=== PATIENT | female | born 1960 | race Caucasian/White ===

== ENCOUNTER → 2018-02-11 | Outpatient (CLI) | payer OTHER ==
--- NOTE | 2018-02-11 17:10 | Diagnostic Imaging Report ---
PROCEDURE:HIPS BILAT 3-4VWS (+/- PELVIS) INDICATION:Bilateral hip pain, popping COMPARISON:None. FINDINGS: Normal mineralization. No acute displaced fracture or dislocation. Joint spaces are relatively well-preserved. No lytic or blastic lesion. Soft tissues are unremarkable. CONCLUSION: Essentially unremarkable hip films. Gunner Belcher M.D. Dictated by: Gunner Belcher M.D. on 02/11/2018 at 17:13 Electronically approved by: Gunner Belcher M.D. on 02/11/2018 at 17:13
== END ==
LOC: RAD 09:46
PROVIDERS: ATTEND Internal Medicine
DX: M16.11 Unilateral primary osteoarthritis, right hip (principal)
CPT/HCPCS: 73522

== ENCOUNTER → 2019-02-24 | Outpatient (CLI) | payer OTHER | LOC: RAD 08:01 | PROVIDERS: ATTEND Family Medicine | DX: R22.41 Localized swelling, mass and lump, right lower limb (principal) | CPT/HCPCS: 93971 ==

== ENCOUNTER → 2022-01-04 | Outpatient (CLI) | payer OTHER | LOC: MAMMO 12:49 | PROVIDERS: ATTEND Internal Medicine | DX: R10.2 Pelvic and perineal pain (principal); N94.10 Unspecified dyspareunia | CPT/HCPCS: 76830; 76856; 77067 ==

== ENCOUNTER 2022-02-01 17:40 | Emergency (ER) | payer OTHER ==
[~2022-02-01] VITALS: Ht 162.6 cm; Wt 100.7 kg
[2022-02-01] MEDS ORDERED: SODIUM CHLORIDE 0.9% 1000ML 1,000 ML IV ONE ×2 (18:00→18:30)
[2022-02-01 18:01] LABS: BASOPHILS # (AUTO) 0.1 (0.0-0.1); BASOPHILS % 0.3 % (0.0-1.0); EOSINOPHILS # (AUTO) 0.1 (0.0-0.4); EOSINOPHILS % 0.7 % (0.0-6.0); HEMATOCRIT 51.5 % (34.2-44.1); HEMOGLOBIN 16.7 g/dL (12.0-16.0); LYMPHOCYTES # (AUTO) 2.8 (1.0-3.2); LYMPHOCYTES % 15.5 % (18.0-39.1); MEAN CORPUSCULAR HEMOGLOBIN 27.5 pg (28-32); MEAN CORPUSCULAR HGB CONC 32.4 g/dL (31-35); MEAN CORPUSCULAR VOLUME 84.8 fL (81-99); MONOCYTES # (AUTO) 1.2 (0.2-0.8); MONOCYTES % 6.5 % (4.4-11.3); NEUTROPHILS # (AUTO) 13.7 (2.1-6.9); NEUTROPHILS % 76.2 % (38.7-80.0); PLATELET COUNT 350 x10e3/uL (140-360); RED BLOOD COUNT 6.07 x10e6/uL (3.6-5.1); RED CELL DISTRIBUTION WIDTH 14.6 % (11.7-14.4)
[2022-02-01 18:16] LABS: ALBUMIN 3.8 g/dL (3.5-5.0); ANION GAP 15.7 mmol/L (8-16); CALCIUM 9.4 mg/dL (8.4-10.2); CREATININE, SERUM 1.54 mg/dL (0.57-1.11); POTASSIUM 4.7 mmol/L (3.5-5.1)
[2022-02-01] MEDS ORDERED: ONDANSETRON ODT4 MG PO (19:25)
[2022-02-01 20:10] VITALS: BP 100/87
== END 2022-02-01 20:11 | disposition home or self-care (01) ==
LOC: ER 17:49
DX: E86.0 Dehydration (principal); N17.9 Acute kidney failure, unspecified; R42 Dizziness and giddiness; I10 Essential (primary) hypertension
CPT/HCPCS: 36415; 70450; 71045; 80053; 85025; 93005; 99284; J7030

== ENCOUNTER 2022-02-10 11:59 | Emergency (ER) | payer OTHER ==
[~2022-02-10] VITALS: Ht 162.6 cm; Wt 100.7 kg
[~2022-02-10 11:59] MED LIST: ONDANSETRON ODT4 MG PO
[2022-02-10] MEDS ORDERED: SODIUM CHLORIDE 0.9% 1000ML 1,000 ML IV STA (12:09)
[2022-02-10] MEDS ORDERED: ONDANSETRON HCL INJ 2MG/ML 2ML 2 MG/ML VIAL IV STA (12:09)
[2022-02-10 13:07] LABS: COLOR,URINE YELLOW (YELLOW)
[2022-02-10 13:08] LABS: BACTERIA,URINE FEW /HPF; CLARITY,URINE SL CLOUDY (CLEAR); EPITHELIAL CELLS,URINE FEW /LPF; KETONES,URINE TRACE (NEGATIVE); LEUKOCYTE ESTERASE ,URINE NEGATIVE (NEGATIVE); NITRITE,URINE NEGATIVE (NEGATIVE); PROTEIN,URINE DIPSTICK 1+ (NEGATIVE); RBC,URINE 0-5 /HPF (0-5); URINE UROBILINOGEN 0.2 mg/dL (0.2 - 1); WBC,URINE (MAN) 0-5 /HPF (0-5)
[2022-02-10 13:18] LABS: BASOPHILS # (AUTO) 0.1 (0.0-0.1); BASOPHILS % 0.4 % (0.0-1.0); EOSINOPHILS # (AUTO) 0.1 (0.0-0.4); HEMATOCRIT 45.9 % (34.2-44.1); HEMOGLOBIN 14.6 g/dL (12.0-16.0); LYMPHOCYTES # (AUTO) 1.8 (1.0-3.2); LYMPHOCYTES % 14.6 % (18.0-39.1); MEAN CORPUSCULAR HEMOGLOBIN 27.4 pg (28-32); MEAN CORPUSCULAR HGB CONC 31.8 g/dL (31-35); MEAN CORPUSCULAR VOLUME 86.3 fL (81-99); MONOCYTES % 8.3 % (4.4-11.3); NEUTROPHILS % 75.4 % (38.7-80.0); PLATELET COUNT 276 x10e3/uL (140-360); RED BLOOD COUNT 5.32 x10e6/uL (3.6-5.1); RED CELL DISTRIBUTION WIDTH 14.6 % (11.7-14.4)
[2022-02-10 13:33] LABS: INR 0.92; PARTIAL THROMBOPLASTIN TIME 28.1 seconds (23.8-35.5); PROTHROMBIN TIME 13.2 seconds (11.9-14.5)
[2022-02-10 13:39] LABS: ALANINE AMINOTRANSFERASE 12 IU/L (0-55); ALBUMIN 3.3 g/dL (3.5-5.0); ALBUMIN/GLOBULIN RATIO 1.1 (0.8-2.0); ALKALINE PHOSPHATASE 66 IU/L (40-150); ANION GAP 15.3 mmol/L (8-16); BLOOD UREA NITROGEN 22 mg/dL (7-26); BUN/CREATININE RATIO 22 (6-25); CALCIUM 8.4 mg/dL (8.4-10.2); CARBON DIOXIDE 26 mmol/L (22-29); CHLORIDE 102 mmol/L (98-107); CREATINE KINASE 29 IU/L (29-168); CREATININE, SERUM 0.99 mg/dL (0.57-1.11); GLUCOSE 100 mg/dL (74-118); MAGNESIUM 1.7 MG/DL (1.3-2.1); POTASSIUM 4.3 mmol/L (3.5-5.1); SODIUM 139 mmol/L (136-145)
== END 2022-02-10 15:26 | disposition home or self-care (01) ==
LOC: ER 12:08
DX: R42 Dizziness and giddiness (principal); I10 Essential (primary) hypertension; M54.9 Dorsalgia, unspecified; G89.29 Other chronic pain
CPT/HCPCS: 36415; 80053; 81001; 82550; 82553; 83735; 84484; 85025; 85610; 85730; 87086; 93005; 99284; J2405; J7030

== ENCOUNTER 2022-03-01 08:54 | Emergency (ER) | payer OTHER ==
[~2022-03-01] VITALS: Ht 162.6 cm; Wt 105.7 kg
[2022-03-01] MEDS ORDERED: SODIUM CHLORIDE FLUSH 10 ML SYR IV PRN (09:15)
[2022-03-01 09:37] LABS: BASOPHILS % 0.5 % (0.0-1.0); EOSINOPHILS # (AUTO) 0.2 (0.0-0.4); EOSINOPHILS % 1.8 % (0.0-6.0); HEMATOCRIT 46.5 % (34.2-44.1); HEMOGLOBIN 14.8 g/dL (12.0-16.0); LYMPHOCYTES # (AUTO) 1.9 (1.0-3.2); LYMPHOCYTES % 23.6 % (18.0-39.1); MEAN CORPUSCULAR HEMOGLOBIN 27.4 pg (28-32); MEAN CORPUSCULAR HGB CONC 31.8 g/dL (31-35); MONOCYTES # (AUTO) 0.6 (0.2-0.8); NEUTROPHILS # (AUTO) 5.4 (2.1-6.9); NEUTROPHILS % 66.7 % (38.7-80.0); PLATELET COUNT 300 x10e3/uL (140-360); RED BLOOD COUNT 5.41 x10e6/uL (3.6-5.1); RED CELL DISTRIBUTION WIDTH 14.8 % (11.7-14.4)
[2022-03-01 09:40] LABS: INR 0.85; PARTIAL THROMBOPLASTIN TIME 26.7 seconds (23.8-35.5); PROTHROMBIN TIME 12.4 seconds (11.9-14.5)
[2022-03-01 09:47] LABS: ALANINE AMINOTRANSFERASE 13 IU/L (0-55); ALBUMIN 3.2 g/dL (3.5-5.0); ALBUMIN/GLOBULIN RATIO 0.9 (0.8-2.0); ALKALINE PHOSPHATASE 72 IU/L (40-150); ANION GAP 15.5 mmol/L (8-16); BLOOD UREA NITROGEN 18 mg/dL (7-26); BUN/CREATININE RATIO 27 (6-25); CALCIUM 8.8 mg/dL (8.4-10.2); CARBON DIOXIDE 25 mmol/L (22-29); CHLORIDE 107 mmol/L (98-107); CREATININE, SERUM 0.66 mg/dL (0.57-1.11); GLUCOSE 110 mg/dL (74-118); POTASSIUM 3.5 mmol/L (3.5-5.1); SODIUM 144 mmol/L (136-145)
[2022-03-01 10:04] LABS: CLARITY,URINE SL CLOUDY (CLEAR); COLOR,URINE YELLOW (YELLOW); KETONES,URINE NEGATIVE (NEGATIVE); LEUKOCYTE ESTERASE ,URINE NEGATIVE (NEGATIVE); NITRITE,URINE NEGATIVE (NEGATIVE); PHENCYCLIDINE SCREEN,URINE NEGATIVE (NEGATIVE); PROTEIN,URINE DIPSTICK NEGATIVE (NEGATIVE)
[2022-03-01 10:05] LABS: AMPHETAMINES SCREEN,URINE NEGATIVE (NEGATIVE); BENZODIAZEPINES SCREEN,URINE NEGATIVE (NEGATIVE); URINE UROBILINOGEN 0.2 mg/dL (0.2 - 1)
[2022-03-01 10:40] LABS: BACTERIA,URINE FEW /HPF; EPITHELIAL CELLS,URINE FEW /LPF; RBC,URINE 0-5 /HPF (0-5); WBC,URINE (MAN) 0-5 /HPF (0-5)
[2022-03-01 11:34] VITALS: BP 145/58
== END 2022-03-01 11:35 | disposition home or self-care (01) ==
LOC: ER 09:02
DX: R42 Dizziness and giddiness (principal); I10 Essential (primary) hypertension; F41.9 Anxiety disorder, unspecified; M54.9 Dorsalgia, unspecified; G89.29 Other chronic pain
CPT/HCPCS: 36415; 70450; 71045; 80053; 80307; 81001; 84484; 85025; 85610; 85730; 93005; 99284

== ENCOUNTER 2022-06-25 14:19 | Emergency (ER) | payer OTHER ==
[~2022-06-25] VITALS: Ht 162.6 cm; Wt 108.9 kg
[2022-06-25] MEDS ORDERED: ULTRAM50 MG PO (14:54)
== END 2022-06-25 15:05 | disposition home or self-care (01) ==
LOC: ER 14:42
DX: M25.562 Pain in left knee (principal); M25.561 Pain in right knee; M54.9 Dorsalgia, unspecified; G89.29 Other chronic pain; I10 Essential (primary) hypertension; F41.9 Anxiety disorder, unspecified
CPT/HCPCS: 99283

== ENCOUNTER → 2022-08-06 | Outpatient (CLI) | payer OTHER ==
[~2022-08-06] MED LIST changes: +ULTRAM50 MG PO
== END ==
LOC: RAD 14:52
PROVIDERS: ATTEND Internal Medicine
DX: M17.11 Unilateral primary osteoarthritis, right knee (principal)

== ENCOUNTER → 2022-12-27 | Outpatient (CLI) | payer OTHER ==
[~2022-12-27] MED LIST changes: +ULTRAM 50MG50 MG PO
== END ==
LOC: MAMMO 08:27
PROVIDERS: ATTEND Internal Medicine
DX: Z12.31 Encounter for screening mammogram for malignant neoplasm of breast (principal)
CPT/HCPCS: 77067

== ENCOUNTER 2022-12-30 14:19 | Emergency (ER) | payer OTHER ==
[~2022-12-30] VITALS: Ht 162.6 cm; Wt 108.9 kg
[~2022-12-30 14:19] MED LIST changes: -ULTRAM 50MG50 MG PO
[2022-12-30] MEDS ORDERED: ULTRAM 50MG50 MG PO (17:14)
== END 2022-12-30 17:49 | disposition home or self-care (01) ==
LOC: ER 14:22
DX: M25.562 Pain in left knee (principal); M25.561 Pain in right knee; M54.50 Low back pain, unspecified; W18.39XA Other fall on same level, initial encounter; G89.29 Other chronic pain; I10 Essential (primary) hypertension; F41.9 Anxiety disorder, unspecified
CPT/HCPCS: 99283

== ENCOUNTER 2023-08-09 15:53 | Emergency (ER) | payer OTHER ==
[~2023-08-09] VITALS: Ht 162.6 cm; Wt 108.9 kg
[~2023-08-09 15:53] MED LIST changes: +ULTRAM 50MG50 MG PO
[2023-08-09 19:33] VITALS: BP 143/92; PULSE 96; RESP 16; TEMP 98.8; O2SAT 98
== END 2023-08-09 19:40 | disposition home or self-care (01) ==
LOC: ER 16:32
DX: M25.561 Pain in right knee (principal); M17.11 Unilateral primary osteoarthritis, right knee; G89.29 Other chronic pain; I10 Essential (primary) hypertension; K21.9 Gastro-esophageal reflux disease without esophagitis; F41.9 Anxiety disorder, unspecified; M54.9 Dorsalgia, unspecified
CPT/HCPCS: 99283

== ENCOUNTER → 2023-12-30 | Day surgery (SDC) | payer OTHER ==
[2023-12-27 10:15] LABS: BASOPHILS % 0.2 % (0.0-1.0); EOSINOPHILS # (AUTO) 0.1 (0.0-0.4); EOSINOPHILS % 0.7 % (0.0-6.0); HEMATOCRIT 46.7 % (34.2-44.1); LYMPHOCYTES # (AUTO) 2.7 (1.0-3.2); LYMPHOCYTES % 16.3 % (18.0-39.1); MEAN CORPUSCULAR HEMOGLOBIN 29.8 pg (28-32); MEAN CORPUSCULAR HGB CONC 34.3 g/dL (31-35); MONOCYTES % 6.1 % (4.4-11.3); NEUTROPHILS # (AUTO) 12.8 (2.1-6.9); NEUTROPHILS % 76.2 % (38.7-80.0); PLATELET COUNT 300 x10e3/uL (140-360); RED BLOOD COUNT 5.37 x10e6/uL (3.6-5.1); RED CELL DISTRIBUTION WIDTH 14.7 % (11.7-14.4); WHITE BLOOD COUNT 16.77 x10e3/uL (4.8-10.8)
[~2023-12-30] MED LIST changes: +ACETAMINOPHEN 1000 MG/100 ML IV ONE; +ACETAMINOPHEN 1000 MG/100 ML IV PRN; +ACETAMINOPHEN 650 MG SUPP PR PRN; +ASPIRIN 325 MG TAB PO SCH; +CEFAZOLIN SODIUM 2 GM ONE; +CEFAZOLIN SODIUM 2 GM VIAL ONE; +CEFDINIR300 MG PO; +CELEBREX100 MG PO; +CELECOXIB 100 MG CAP PO SCH; +CELECOXIB 200 MG CAP ONE; +DEXAMETHASONE SOD PHOS 10 MG/1 ML VIAL ONE; +DEXAMETHASONE SOD PHOS INJ 4 MG/ML SDV ONE; +DEXMEDETOMIDINE HCL 200 MCG/2 ML VIAL ONE; +DIPHENHYDRAMINE HCL INJ 50 MG/ML VIAL IV PRN; +DOCUSATE SODIUM 100 MG CAP PO PRN; +EPINEPHRINE HCL 1:1000 1ML 1 MG/ML AMP ONE; +FAMOTIDINE 20 MG/2 ML VIAL IV ONE; +FENTANYL CITRATE/PF 100MCG/2 ML INJ ONE; +GABAPENTIN 300 MG CAP ONE; +HYDROCODONE/APAP 5MG-325MG TAB PO PRN; +HYDROCODONE/APAP 7.5MG-325MG 1 EA TAB ONE; +HYDROCODONE/APAP 7.5MG-325MG 1 EA TAB PO PRN; +LACTATED RINGER'S 1,000 ML BAG ONE; +LACTATED RINGER'S 1,000 ML ONE; +LIDOCAINE HCL 2% LOCAL INJ 5 ML SDV VIAL INJ ONE; +LIPITOR10 MG PO; +MIDAZOLAM HCL 2 MG/2 ML VIAL ONE; +NEURONTIN100 MG PO; +OMEPRAZOLE40 MG PO; +ONDANSETRON HCL INJ 2MG/ML 2ML 2 MG/ML VIAL IV PRN; +ONDANSETRON HCL INJ 2MG/ML 2ML 2 MG/ML VIAL ONE; +ONDANSETRON ODT4 MG SL; +PROPOFOL IV EMULSION 10 MG/ML 20 ML VIAL ONE; +ROPIVACAINE 0.5% 5 MG/ML 30 ML SDV ONE; +ROPIVACAINE 246.25 MG, EPINEPHRINE HCL 1:1000 1ML 0.5 MG, CLONIDINE HCL 0.08 MG, KETORO... INJ ONE; +SEVOFLURANE INHAL SOLN 250 ML PEN BTL ONE; +SODIUM CHLORIDE 0.9% 1000ML 1,000 ML IV SCH; +SODIUM CHLORIDE 0.9% 500ML 500 ML ONE; +SODIUM CHLORIDE 0.9% INJ 100 ML BAG ONE; +SODIUM CHLORIDE 0.9% INJ 500 ML BAG ONE; +Sodium Chloride 0.9% 50ML Bag ONE; +TRANEXAMIC ACID 1,000 MG/10 ML ML ONE; +TRANEXAMIC ACID 20 ML ONE; +VANCOMYCIN 500 MG ONE; +Vancomycin IV 1,000 MG ONE; +ZESTRIL10 MG PO; +ZOLPIDEM TARTRATE 5 MG TAB PO PRN; +[UNRECOGNIZED DRUG - OTHER] ONE; +vit d2 PO
[2023-12-30 06:29] LABS: BASOPHILS # (AUTO) 0.1 (0.0-0.1); BASOPHILS % 0.3 % (0.0-1.0); EOSINOPHILS # (AUTO) 0.1 (0.0-0.4); EOSINOPHILS % 0.4 % (0.0-6.0); HEMATOCRIT 47.1 % (34.2-44.1); HEMOGLOBIN 15.6 g/dL (12.0-16.0); LYMPHOCYTES # (AUTO) 2.4 (1.0-3.2); LYMPHOCYTES % 14.6 % (18.0-39.1); MEAN CORPUSCULAR HEMOGLOBIN 29.1 pg (28-32); MEAN CORPUSCULAR HGB CONC 33.1 g/dL (31-35); MEAN CORPUSCULAR VOLUME 87.9 fL (81-99); MONOCYTES % 5.8 % (4.4-11.3); NEUTROPHILS % 78.1 % (38.7-80.0); PLATELET COUNT 275 x10e3/uL (140-360); RED BLOOD COUNT 5.36 x10e6/uL (3.6-5.1); RED CELL DISTRIBUTION WIDTH 14.3 % (11.7-14.4); WHITE BLOOD COUNT 16.61 x10e3/uL (4.8-10.8)
[2023-12-30] MEDS: HYDROCODONE/APAP 7.5MG-325MG 1 EA TAB PO ONE (10:15)
[2023-12-30 13:00] VITALS: BP 144/90; PULSE 90; RESP 18; O2SAT 97
== END | disposition home health service (06) ==
LOC: OR 05:21
PROVIDERS: ATTEND Specialist
DX: M17.11 Unilateral primary osteoarthritis, right knee (principal); D72.829 Elevated white blood cell count, unspecified; Z68.41 Body mass index [BMI] 40.0-44.9, adult; E11.9 Type 2 diabetes mellitus without complications; E66.01 Morbid (severe) obesity due to excess calories; I10 Essential (primary) hypertension; E78.5 Hyperlipidemia, unspecified; K21.9 Gastro-esophageal reflux disease without esophagitis; G89.29 Other chronic pain; Z01.812 Encounter for preprocedural laboratory examination; Z79.82 Long term (current) use of aspirin; Z79.899 Other long term (current) drug therapy; Z79.85 Long-term (current) use of injectable non-insulin antidiabetic drugs
CPT/HCPCS: 27447; 36415 ×2; 73560; 85025 ×2; 86850; 86900; 97116 ×2; 97161; 97530 ×2; C1713 ×2; C1776 ×4; J0131; J0171; J1100 ×2; J1885; J2001; J2250; J2405; J2704; J2795; J3010; J3370; J7040; J7050; J7121

== ENCOUNTER 2023-12-31 07:52 | Emergency (ER) | payer OTHER ==
[~2023-12-31] VITALS: Ht 162.6 cm; Wt 108.9 kg
[~2023-12-31 07:52] MED LIST changes: -ACETAMINOPHEN 1000 MG/100 ML IV ONE; -ACETAMINOPHEN 1000 MG/100 ML IV PRN; -ACETAMINOPHEN 650 MG SUPP PR PRN; -ASPIRIN 325 MG TAB PO SCH; -CEFAZOLIN SODIUM 2 GM ONE; -CEFAZOLIN SODIUM 2 GM VIAL ONE; -CELEBREX100 MG PO; -CELECOXIB 100 MG CAP PO SCH; -CELECOXIB 200 MG CAP ONE; -DEXAMETHASONE SOD PHOS 10 MG/1 ML VIAL ONE; -DEXAMETHASONE SOD PHOS INJ 4 MG/ML SDV ONE; -DEXMEDETOMIDINE HCL 200 MCG/2 ML VIAL ONE; -DIPHENHYDRAMINE HCL INJ 50 MG/ML VIAL IV PRN; -DOCUSATE SODIUM 100 MG CAP PO PRN; -EPINEPHRINE HCL 1:1000 1ML 1 MG/ML AMP ONE; -FAMOTIDINE 20 MG/2 ML VIAL IV ONE; -FENTANYL CITRATE/PF 100MCG/2 ML INJ ONE; -GABAPENTIN 300 MG CAP ONE; -HYDROCODONE/APAP 5MG-325MG TAB PO PRN; -HYDROCODONE/APAP 7.5MG-325MG 1 EA TAB ONE; -HYDROCODONE/APAP 7.5MG-325MG 1 EA TAB PO PRN; -LACTATED RINGER'S 1,000 ML BAG ONE; -LACTATED RINGER'S 1,000 ML ONE; -LIDOCAINE HCL 2% LOCAL INJ 5 ML SDV VIAL INJ ONE; -MIDAZOLAM HCL 2 MG/2 ML VIAL ONE; -ONDANSETRON HCL INJ 2MG/ML 2ML 2 MG/ML VIAL IV PRN; -ONDANSETRON HCL INJ 2MG/ML 2ML 2 MG/ML VIAL ONE; -PROPOFOL IV EMULSION 10 MG/ML 20 ML VIAL ONE; -ROPIVACAINE 0.5% 5 MG/ML 30 ML SDV ONE; -ROPIVACAINE 246.25 MG, EPINEPHRINE HCL 1:1000 1ML 0.5 MG, CLONIDINE HCL 0.08 MG, KETORO... INJ ONE; -SEVOFLURANE INHAL SOLN 250 ML PEN BTL ONE; -SODIUM CHLORIDE 0.9% 1000ML 1,000 ML IV SCH; -SODIUM CHLORIDE 0.9% 500ML 500 ML ONE; -SODIUM CHLORIDE 0.9% INJ 100 ML BAG ONE; -SODIUM CHLORIDE 0.9% INJ 500 ML BAG ONE; -Sodium Chloride 0.9% 50ML Bag ONE; -TRANEXAMIC ACID 1,000 MG/10 ML ML ONE; -TRANEXAMIC ACID 20 ML ONE; -VANCOMYCIN 500 MG ONE; -Vancomycin IV 1,000 MG ONE; -ZOLPIDEM TARTRATE 5 MG TAB PO PRN; -[UNRECOGNIZED DRUG - OTHER] ONE
[2023-12-31] MEDS ORDERED: HYDROCODONE/APAP 7.5MG-325MG 1 EA TAB PO STA (08:12)
[2023-12-31] MEDS ORDERED: HYDROCODONE/APAP 7.5MG-325MG 1 EA TAB ONE ×2 (08:24→13:56)
[2023-12-31] MEDS: HYDROCODONE/APAP 7.5MG-325MG 1 EA TAB PO STA (08:25)
[2023-12-31 09:45] VITALS: O2SAT 99
[2023-12-31] MEDS ORDERED: CELEBREX100 MG PO (10:02)
== END 2023-12-31 10:36 | disposition home or self-care (01) ==
LOC: ER 08:04
DX: G89.18 Other acute postprocedural pain (principal); Z96.651 Presence of right artificial knee joint; I10 Essential (primary) hypertension; K21.9 Gastro-esophageal reflux disease without esophagitis; F41.9 Anxiety disorder, unspecified; M54.9 Dorsalgia, unspecified; G89.29 Other chronic pain
CPT/HCPCS: 99283

== ENCOUNTER 2024-02-11 07:08 | Outpatient (RCR) | payer OTHER ==
[~2024-02-11 07:08] MED LIST changes: +CELEBREX100 MG PO
== END 2024-03-08 ==
LOC: PT 07:08
PROVIDERS: ATTEND Physician Assistant
DX: Z47.1 Aftercare following joint replacement surgery (principal); M25.561 Pain in right knee; M25.661 Stiffness of right knee, not elsewhere classified; M62.81 Muscle weakness (generalized); Z96.651 Presence of right artificial knee joint

== ENCOUNTER → 2025-03-03 | Outpatient (REF) | payer OTHER | LOC: MAMMO 07:27 | PROVIDERS: ATTEND Registered Nurse | DX: Z12.31 Encounter for screening mammogram for malignant neoplasm of breast (principal) | CPT/HCPCS: 77067 ==